=== PATIENT | male | born 2000 | race African-American/Black ===

== ENCOUNTER 2022-06-19 00:04 | Emergency (ER) | payer OTHER, SELFPAY ==
[2022-06-19] MEDS ORDERED: Acetaminophen 500 MG TAB ONE (01:19)
[2022-06-19] MEDS ORDERED: Ketorolac Tromethamine 30 MG/ML VIAL ONE (01:19)
== END 2022-06-19 03:26 | disposition home or self-care (01) ==
LOC: ERS 00:04
DX: S82.51XA Displaced fracture of medial malleolus of right tibia, initial encounter for closed fracture (principal); R51.9 Headache, unspecified; M54.2 Cervicalgia; V49.10XA Passenger injured in collision with unspecified motor vehicles in nontraffic accident, initial encounter; Y92.410 Unspecified street and highway as the place of occurrence of the external cause
CPT/HCPCS: 29515; 96372; J1885